=== PATIENT | female | born 1960 | race Native Hawaiian/Other Pacific Islander ===

== ENCOUNTER 2017-05-18 19:24 | Emergency (ER) | payer OTHER ==
[~2017-05-18] VITALS: Ht 170.2 cm; Wt 65.8 kg
[2017-05-18 20:00] VITALS: BP 147/85; PULSE 93; RESP 20; TEMP 98.8
--- NOTE | 2017-05-18 20:42 | PD ---
HPI Chief Complaint: Fall Time Seen by Provider: 20:34 Travel History International Travel<30 days: No Contact w/Intl Traveler<30days: No Traveled to known affect area: No History of Present Illness HPI This patient complains of injuries from a fall. Duration 3 hours. Severity is moderate. She landed on her left arm. She complains of pain in the left hand and left arm and left knee. No alleviating factors. PFSH Past Medical History Cardiovascular Problems: Yes Cerebrovascular Accident: Yes Social History Alcohol Use: No Tobacco Use: No Substance Use: No Allergies-Medications (Allergen,Severity, Reaction): Coded Allergies: codeine (Verified Allergy, Unknown, N/V D, 05/18/17) Reported Meds & Prescriptions Reported Meds & Active Scripts Active Reported Isentress (Raltegravir) 400 Mg Tab 400 Mg PO BID Truvada (Emtricitabine-Tenofovir Disoproxil Fumarate) 200-300 Mg Tab 1 Tab PO DAILY Truvada (Emtricitabine-Tenofovir Disoproxil Fumarate) 200-300 Mg Tab 1 Tab PO DAILY Vitamin D3 (Cholecalciferol) 5,000 Unit Cap 5,000 Units PO DAILY Vitamin B-12 (Cyanocobalamin) 500 Mcg Subl 500 Mcg SL DAILY Vitamin B-12 (Cyanocobalamin) 500 Mcg Subl 500 Mcg SL DAILY Lisinopril 20 Mg Tab 20 Mg PO DAILY Levothyroxine (Levothyroxine Sodium) 100 Mcg Tab 100 Mcg PO DAILY Metoprolol Succinate ER 24 HR (Metoprolol Succinate) 25 Mg Tab 25 Mg PO DAILY Omeprazole 20 Mg Tab 20 Mg PO DAILY Atorvastatin (Atorvastatin Calcium) 40 Mg Tab 40 Mg PO HS Review of Systems General / Constitutional: No: Fever Eyes: No: Visual changes HENT: No: Headaches Cardiovascular: No: Chest Pain or Discomfort Respiratory: No: Shortness of Breath Gastrointestinal: No: Abdominal Pain Genitourinary: No: Dysuria Musculoskeletal: Positive: Pain Skin: No Rash Neurologic: No: Weakness Psychiatric: No: Depression Endocrine: No: Polydipsia Hematologic/Lymphatic: No: Easy Bruising Physical Exam Narrative GENERAL: Well-nourished, well-developed patient in no apparent distress. SKIN: Focused skin assessment reveals no rash and nodules. Skin is Warm and dry. HEAD: Atraumatic. Normocephalic. EYES: Pupils equal and round. No scleral icterus. No injection or drainage. ENT: No nasal bleeding or discharge. Mucous membranes pink and moist. NECK: Trachea midline. No JVD. CARDIOVASCULAR: Regular rate and rhythm. No murmur appreciated. RESPIRATORY: No accessory muscle use. Clear to auscultation. Breath sounds equal bilaterally. GASTROINTESTINAL: Abdomen soft, non-tender, nondistended. Hepatic and splenic margins not palpable. MUSCULOSKELETAL: No obvious deformities. No clubbing. No cyanosis. No edema. Has bruising and tenderness to the left patella. Has tenderness at the left thumb and left forearm and left distal humerus NEUROLOGICAL: Awake and alert. No obvious cranial nerve deficits. Motor grossly within normal limits. Normal speech. PSYCHIATRIC: Appropriate mood and affect; insight and judgment normal. Data Data Last Documented VS Vital Signs Date Time Temp Pulse Resp B/P (MAP) Pulse Ox O2 Delivery O2 Flow Rate FiO2 05/18/17 22:23 74 18 136/91 (106) 99 Room Air 05/18/17 20:00 98.8 Orders Orders Humerus (Min 2vws) (05/18/17 ) Forearm (2vws) (05/18/17 ) Hand, Complete ([id number]) (05/18/17 ) Knee, Complete (4vws) (05/18/17 ) [facility] Medical Decision Making Medical Screen Exam Complete: Yes Emergency Medical Condition: Yes Medical Record Reviewed: Yes Differential Diagnosis Hand fracture, wrist fracture, forearm fracture Narrative Course I have reviewed the patient's electronic medical record. I reviewed her left hand x-rays I reviewed her left humerus x-rays I reviewed her left forearm x-rays I reviewed her left knee x-rays All of the above x-rays are normal. Placed her in a sling at her request. He has soft tissue injury. Follow-up with primary care Diagnosis Primary Impression: Soft tissue injury of left upper arm Qualified Codes: S49.92XA - Unspecified injury of left shoulder and upper arm , initial encounter Additional Impression: Contusion of left knee, initial encounter Additional Instructions: The patient was advised to follow up with their physician and return if they worsen. Med/Other Pt SpecificInfo: Other Disposition: 01 DISCHARGE HOME Condition: Stable Jonathan Mills MD May 18, 2017 20:42
[2017-05-18 20:56] VITALS: BP 146/90; PULSE 82; RESP 18; O2SAT 100
[2017-05-18] MEDS ORDERED: OMEP20TA93 PO (21:08)
[2017-05-18] MEDS ORDERED: CHOL5000 PO (21:08)
[2017-05-18] MEDS ORDERED: ATOR40TA16 PO (21:08)
[2017-05-18] MEDS ORDERED: LISI-515 PO (21:08)
[2017-05-18] MEDS ORDERED: METO1TAB42 PO (21:08)
[2017-05-18] MEDS ORDERED: VITA500S3 SL (21:08)
[2017-05-18] MEDS ORDERED: TRUV200300 PO (21:08)
[2017-05-18] MEDS ORDERED: RALT400 PO (21:08)
[2017-05-18] MEDS ORDERED: LEVO100T5 PO (21:08)
--- NOTE | 2017-05-18 21:55 | RADRPT ---
EXAM DATE/TIME: 05/18/2017 21:33 [facility] COMPARISON: No previous studies available for comparison. INDICATIONS : Left hand pain. Patient fell tonight. MEDICAL HISTORY : None. SURGICAL HISTORY : None. ENCOUNTER: Initial ACUITY: 1 day PAIN SCORE: 7/10 LOCATION: Left hand. FINDINGS: Three view examination of the left hand demonstrates no soft tissue swelling, dislocation, or fractur e. The carpal bones appear intact. The interphalangeal and metacarpophalangeal joints are intact. Bony mineralization is normal. CONCLUSION: No acute disease. Pacheco Torrez MD on May 18, 2017 at 21:52 Board Certified Radiologist. This report was verified electronically.
--- NOTE | 2017-05-18 21:55 | RADRPT ---
EXAM DATE/TIME: 05/18/2017 21:33 [facility] COMPARISON: No previous studies available for comparison. INDICATIONS : Left arm pain. Patient fell today. MEDICAL HISTORY : None. SURGICAL HISTORY : None. ENCOUNTER: Initial ACUITY: 1 day PAIN SCORE: 7/10 LOCATION: Left humerus. FINDINGS: Two view examination of the left humerus demonstrates no evidence of fracture or dislocation. Bony m ineralization is normal. The soft tissue structures are intact. CONCLUSION: No acute disease. Pacheco Torrez MD on May 18, 2017 at 21:52 Board Certified Radiologist. This report was verified electronically.
--- NOTE | 2017-05-18 21:56 | RADRPT ---
EXAM DATE/TIME: 05/18/2017 21:33 [facility] COMPARISON: No previous studies available for comparison. INDICATIONS : Left knee pain. MEDICAL HISTORY : None. SURGICAL HISTORY : None. ENCOUNTER: Initial ACUITY: 1 day PAIN SCORE: 7/10 LOCATION: Left knee. FINDINGS: Four view examination of the left knee demonstrates no evidence of fracture or dislocation. Bony min eralization is normal. The articular surfaces are intact. The suprapatellar soft tissues have a nor mal configuration. CONCLUSION: No acute disease. Pacheco Torrez MD on May 18, 2017 at 21:53 Board Certified Radiologist. This report was verified electronically.
--- NOTE | 2017-05-18 21:56 | RADRPT ---
EXAM DATE/TIME: 05/18/2017 21:33 [facility] COMPARISON: No previous studies available for comparison. INDICATIONS : Left forearm pain. Patient fell tonight. MEDICAL HISTORY : None. SURGICAL HISTORY : None. ENCOUNTER: Initial ACUITY: 1 day PAIN SCORE: 7/10 LOCATION: Left forearm. FINDINGS: Two view examination of the left forearm demonstrates no evidence of fracture or dislocation. Bony m ineralization is normal. The soft tissue structures are intact. CONCLUSION: No acute disease. Pacheco Torrez MD on May 18, 2017 at 21:53 Board Certified Radiologist. This report was verified electronically.
[2017-05-18 22:23] VITALS: BP 136/91; PULSE 74; RESP 18; O2SAT 99
[2017-05-18 23:15] VITALS: BP 141/86
== END 2017-05-18 23:19 | disposition home or self-care (01) ==
LOC: PHED 19:24
DX: S49.82XA Other specified injuries of left shoulder and upper arm, initial encounter (principal); S80.02XA Contusion of left knee, initial encounter; W19.XXXA Unspecified fall, initial encounter; Z86.73 Personal history of transient ischemic attack (TIA), and cerebral infarction without residual deficits; Z88.5 Allergy status to narcotic agent; Z79.899 Other long term (current) drug therapy
CPT/HCPCS: 73060; 73090; 73130; 73564; 99284